=== PATIENT | male | born 1990 | race Hispanic/Latino ===

== ENCOUNTER 2021-07-02 13:53 | Emergency (ER) | payer SELFPAY ==
[2021-07-02 14:45] VITALS: BP 136/90
== END 2021-07-02 20:55 | disposition left against medical advice (07) ==
LOC: ED 13:53
DX: Z02.89 Encounter for other administrative examinations (principal); Z53.21 Procedure and treatment not carried out due to patient leaving prior to being seen by health care provider

== ENCOUNTER 2021-07-08 23:58 | Emergency (ER) | payer SELFPAY ==
[2021-07-09 01:36] VITALS: BP 133/79
--- NOTE | 2021-07-09 09:24 | Emergency Department Report ---
ED Dizziness HPI - General Chief Complaint: Dizziness Stated Complaint: LIGHTHEADED Time Seen by Provider: 07/09/21 08:35 Source: patient Mode of arrival: Ambulatory Limitations: No Limitations - History of Present Illness Initial Comments: Patient is a 31-year-old male who comes to the emergency room last night after getting dizzy while standing up at work. He states that he had worked all night and has not had anything to eat or drink. He then stood up and got dizzy. His boss made him come to the ER to be checked. By the time I seen him he has been in the ER 8 hours and has had no recurrence of symptoms. We checked his blood sugar is normal. His heart rate is bradycardic but he is young healthy male. He has no chest pain. No shortness of breath. No fever or chills. In fact on exam he is asymptomatic. He denies any trauma. He denies recently hitting his head. Denies any nausea or vomiting. Denies being around anybody that is has had known illness. He is neurologically intact with no focal deficit -: Sudden History of Same: No History of Trauma: No Severity: mild Associated Symptoms: denies other symptoms - Related Data Allergies Allergy/AdvReac Type Severity Reaction Status Date / Time No Known Allergies Allergy Verified 07/09/21 01:36 ED Review of Systems ROS: Stated complaint: LIGHTHEADED Other details as noted in HPI Comment: All other systems reviewed and negative ED Past Medical Hx - Past Medical History Previous Medical History?: No - Surgical History Past Surgical History?: No - Family History Family history: no significant - Social History Smoking Status: Current Every Day Smoker Substance Use Type: None ED Physical Exam - General Limitations: No Limitations General appearance: alert, in no apparent distress - Head Head exam: Present: atraumatic, normocephalic - Eye Eye exam: Present: normal appearance - ENT ENT exam: Present: mucous membranes moist - Neck Neck exam: Present: normal inspection - Respiratory Respiratory exam: Present: normal lung sounds bilaterally. Absent: respiratory distress - Cardiovascular Cardiovascular Exam: Present: regular rate, normal rhythm. Absent: systolic murmur, diastolic murmur, rubs, gallop - GI/Abdominal GI/Abdominal exam: Present: soft, normal bowel sounds - Rectal Rectal exam: Present: deferred - Extremities Exam Extremities exam: Present: normal inspection - Back Exam Back exam: Present: normal inspection - Neurological Exam Neurological exam: Present: alert, oriented X3 - Psychiatric Psychiatric exam: Present: normal affect, normal mood - Skin Skin exam: Present: warm, dry, intact, normal color. Absent: rash ED Course Vital Signs 07/09/21 01:34 Temperature 97.6 F Pulse Rate 70 Respiratory 18 Rate Blood Pressure 133/79 [Left] O2 Sat by Pulse 99 Oximetry ED Medical Decision Making - EKG Data EKG shows normal: sinus rhythm Rate: normal - EKG Data When compared to previous EKG there are: no significant change Interpretation: no acute changes - Medical Decision Making Lab Results 07/09/21 Range/Units 09:03 POC Glucose 113 H (70-105) mg/dL Vital Signs 07/09/21 01:34 Temperature 97.6 F Pulse Rate 70 Respiratory 18 Rate Blood Pressure 133/79 [Left] O2 Sat by Pulse 99 Oximetry By the time of seeing the patient he was here for over 8 hours. He states that he has had no symptoms. He states that he just needs a note to return to work since this occurred on his job. He is ambulatory, nontoxic [id number] and without symptoms. He is taking p.o. His vital signs are normal. He is in no acute distress. Patient being discharged home with discharge plan of care including diet, activity, medications and follow-up. He verbalizes understanding of plan of care - Differential Diagnosis Rule out hypoglycemia, dehydration, fatigue Critical care attestation.: If time is entered above; I have spent that time in minutes in the direct care of this critically ill patient, excluding procedure time. ED Disposition Clinical Impression: Dizziness Disposition: 01 HOME / SELF CARE / HOMELESS Is pt being admited?: No Does the pt Need Aspirin: No Condition: Stable Instructions: Dizziness Additional Instructions: Stay well-hydrated and eat routinely at work. Primary care referral given below should she need it. Diet and activity as tolerated Referrals: MAYTE HODGE MD [Primary Care Provider] - 3-5 Days Forms: Work/School Release Form(ED) Time of Disposition: 09:23
--- NOTE | 2021-07-11 09:53 | Electrocardiograph Report ---
[facility] Test Date: 2021-07-09 Test Time: 09:06:26 Pat Name: RACHEL HAGEN Department: Room: Gender: M Senior Underwriter: SOLEDAD : 1990 Requested By: RAVEN BAR Order Number: [id number] Reading MD: Elvin Bustillo Measurements Intervals [place] Rate: 59 P: 3 WI: 152 QRS: 29 QRSD: 89 T: 10 QT: 411 QTc: 398 Interpretive Statements Sinus bradycardia S. ARRHYTHMIA No previous ECG available for comparison Electronically Signed On 07-11-2021 9:53:24 EDT by Elvin Bustillo
== END 2021-07-09 09:46 | disposition home or self-care (01) ==
LOC: ED 23:58
DX: R42 Dizziness and giddiness (principal); F17.200 Nicotine dependence, unspecified, uncomplicated
CPT/HCPCS: 82962; 93005; 99282